=== PATIENT | male | born 1990 | race Caucasian/White ===

== ENCOUNTER → 2021-06-15 08:12 | Outpatient (BNVA) | payer OTHER, SELFPAY | PROVIDERS: Visit Provider Family Medicine | DX: Z20.822 Contact with and (suspected) exposure to COVID-19 (principal); J18.9 Pneumonia, unspecified organism; R63.4 Abnormal weight loss | CPT/HCPCS: 80053; 84439; 84443; 85025; 87635 ==

== ENCOUNTER → 2021-06-27 15:32 | Outpatient (BNVA) | payer SELFPAY | PROVIDERS: Visit Provider Nurse Practitioner Family | DX: R79.81 Abnormal blood-gas level (principal); R05.9 Cough, unspecified | CPT/HCPCS: 71046 ==

== ENCOUNTER 2021-06-27 18:58 | Emergency (ER) | payer SELFPAY ==
--- NOTE | 2021-06-27 19:21 | XRR_ITS ---
PROCEDURE INFORMATION: Exam: XR Chest Exam date and time: 06/27/2021 7:21 PM Age: 30 years old Clinical indication: Shortness of breath; Patient HX: Low o2; Additional info: Covid TECHNIQUE: Imaging protocol: XR of the chest. Views: 1 view. COMPARISON: CR XR chest 2V* [id number] 06/27/2021 3:41 PM FINDINGS: Lungs: Since earlier today the left lung is now clear. No consolidation. Pleural spaces: Unremarkable. No pleural effusion. No pneumothorax. Heart/Mediastinum: Unremarkable. No cardiomegaly. Bones/joints: Unremarkable. XR/XR chest 1V portable [id number] IMPRESSION: The lungs are clear
[2021-06-27 20:22] VITALS: BP 132/79; PULSE 98; RESP 26; O2SAT 88; BMI 17.6
[2021-06-27 22:44] VITALS: BP 108/79; PULSE 100; RESP 18; O2SAT 95
[2021-06-27 23:24] VITALS: BP 134/82; PULSE 110; RESP 20; O2SAT 92
--- NOTE | 2021-06-27 23:26 | PC.NURSE ---
received with c/o low SPO2 since 06/10/2021, states seen by MD and has completed antibiotics and steroids with out relief. oxygen noted to drop to 88% when walking while on oxygen. when at rest O2 increases reports green sputum wtih coughing but states it is normal. states cough is not any worse than usual. speech clear, sentences complete.
--- NOTE | 2021-06-27 23:27 | ECG_ITS ---
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 Measurements Intervals Burns Rate: 79 P: 84 LA: 134 QRS: 92 QRSD: 86 T: 75 QT: 345 QTc: 397 Interpretive Statements SINUS RHYTHM BORDERLINE RIGHT AXIS DEVIATION [QRS AXIS > 90] POSSIBLE RIGHT VENTRICULAR CONDUCTION DELAY [RSR (QR) IN V1/V2] ST ELEVATION, PROBABLY EARLY REPOLARIZATION [ST ELEVATION WITH NORMALLY INFLECTED T-WAVE] TALL T-WAVES, SUGGESTS HYPERKALEMIA No previous ECG available for comparison Electronically Signed On 06-28-2021 17:09:47 APPLICATION ASSISTANT by Machelle Huang M.D. [id number]
[2021-06-27 23:29] LABS: SARS Covid-2 Antigen Negative (Negative)
--- NOTE | 2021-06-27 23:31 | W.ED.SOB ---
HPI - SOB/Dyspnea General: Chief Complaint: Shortness of Breath/Dyspnea Stated Complaint: Oxygen Level Low\Having problems breathing Time Seen by Provider: 06/27/21 23:23 Source: patient Mode of arrival: ambulatory Limitations: no limitations History of Present Illness: HPI Narrative: 30-year-old male states over the last month he has been having increasing shortness of breath. He states he has been having a cough and congestion and he states that over the last 3 to 4 days he has had increasing dyspnea he is having hypoxic here his pulse ox is 87% on room air. He states that it is much worse with exertion denies any chest pain denies any history of smoking or previous respiratory issues that he knows of. Associated symptoms: Deny abdominal pain, chest pain, fever(s), nausea or vomiting Review of Systems Const: Denies: fever(s), chills, body aches or change in appetite Eyes: Denies: blurry vision or eye discomfort ENMT: Denies: throat pain or dental pain Card: Denies: chest pain Resp: Reports: dyspnea, non-productive cough and wheezing GI: Denies: abdominal pain, nausea, vomiting or diarrhea : Denies: dysuria Musc: Denies: neck pain or back pain Skin/Breast: Denies: rash Neuro: Denies: headache(s) Psych: Denies: depression Anatoly/Lymph: Denies: easy bruising All/Imm: Denies: urticaria PFSH ED PFSH: Family History (Updated 06/28/21 @ 03:12 by Isidoro Yoder MD) Denies family history of CAD (coronary artery disease) Social History Smoking and tobacco status: never smoked Alcohol intake: never Physical Exam Const: COMMON NORMALS: no acute distress, patient oriented x3 and healthy appearing HENMT: COMMON NORMALS: normocephalic and atraumatic HEAD & SCALP: normocephalic and atraumatic Eye: COMMON NORMALS: Equal, round and reactive pupils present and EOMs intact bilaterally PUPIL: Yes Equal, round and reactive pupils present Neck/C-Spine: COMMON NORMALS: full ROM and supple Chest: COMMONS NORMALS: normal inspection of the chest and normal palpation of entire chest wall Resp: COMMON NORMALS: normal respiratory effort, No retractions, No use of accessory muscles and clear to auscultation bilaterally AUSCULTATION: clear to auscultation bilaterally and wheezes Cardio: COMMON NORMALS: regular rate, regular rhythm and No murmurs present (Cardio) RATE: regular rate RHYTHM: regular rhythm GI: COMMON NORMALS: Normal to inspection, nondistended, normoactive bowel sounds present, Soft to palpation, non-tender and no masses PALPATION: Yes Soft to palpation Extremity: COMMON NORMALS: normal to inspection and full ROM Neuro: COMMON NORMALS: patient oriented x3, moves all extremities and no focal motor deficits Psych: COMMON NORMALS: mental status grossly normal, Normal thought process present and cooperative THOUGHT PROCESS: Normal thought process present Skin: COMMON NORMALS: no rashes or lesions noted and no wounds GENERAL SKIN EXAM: no rashes or lesions noted Course Vital Signs: Vital signs: Vital Signs Pulse Rate 101 H 06/28/21 00:12 Respiratory Rate 16 06/28/21 00:09 Blood Pressure 134/82 06/27/21 23:24 Pulse Oximetry 91 06/28/21 00:16 MDM - SOB/Dyspnea Medical Decision Making Patient presents here with shortness of breath likely bronchitis will have a send out COVID test patient requiring 2 L of oxygen here and qualified for home oxygen will start him on steroids antibiotics and send him home with home oxygen x-ray shows no pneumonia blood work is all normal D-dimer is negative we will get him follow-up with pulmonology he understands agrees to plan. Lab Data : 06/28/21 00:45 06/28/21 01:21 Labs/Radiology: Radiology Impressions Chest X-Ray 06/27/21 19:21 IMPRESSION: The lungs are clear Laboratory Results WBC 11.8 10^3/uL (4.0-10.0) H 06/28/21 00:45 RBC 5.26 10^6/uL (4.1-5.3) 06/28/21 00:45 Hgb 16.0 g/dL (11.7-16.6) 06/28/21 00:45 Hct 47.5 % (42.0-52.0) 06/28/21 00:45 MCV 90.3 fl (80-94) 06/28/21 00:45 MCH 30.4 pg (28.0-34.0) 06/28/21 00:45 MCHC 33.7 g/dL (30.0-36.0) 06/28/21 00:45 RDW 12.0 % (12.1-15.1) L 06/28/21 00:45 Plt Count 396 10^3/cmm (130-400) 06/28/21 00:45 MPV 8.9 fL (7.4-10.4) 06/28/21 00:45 Neut % (Auto) 70.1 % 06/28/21 00:45 Lymph % (Auto) 19.9 % 06/28/21 00:45 [place] % (Auto) 5.4 % 06/28/21 00:45 Eos % (Auto) 3.1 % 06/28/21 00:45 Baso % (Auto) 1.0 % 06/28/21 00:45 Neut # (Auto) 8.27 10^3/uL (1.8-7.7) H 06/28/21 00:45 Lymph # (Auto) 2.4 10^3/uL (0.8-4.8) 06/28/21 00:45 Charlotte # (Auto) 0.6 10^3/uL (0.2-0.9) 06/28/21 00:45 Eos # (Auto) 0.4 10^3/uL (0.0-0.8) 06/28/21 00:45 Baso # (Auto) 0.1 10^3/uL (0.0-0.1) 06/28/21 00:45 Nucleated RBC % (auto) 0 % 06/28/21 00:45 Nucleated RBCs # 0.0 /100WBC 06/28/21 00:45 D-Dimer <= 0.27 ug/mIFEU (0-0.59) 06/28/21 00:45 Specimen Type Arterial 06/27/21 23:50 Sample Site Radial, left 06/27/21 23:50 ABG pH 7.46 (7.35-7.45) H 06/27/21 23:50 ABG pCO2 36.6 mmHg (35-45) 06/27/21 23:50 ABG pO2 57.0 mmHg (80.0-100.0) L 06/27/21 23:50 ABG HCO3 26.3 mmol/L (22-26) H 06/27/21 23:50 ABG Base Excess 2.7 mmol/L (-2.0-2.0) H 06/27/21 23:50 Pradip Test Pos 06/27/21 23:50 Hematocrit 50.8 % (42-52) 06/27/21 23:50 Hgb O2 Saturation 89.1 % (95-100) L 06/27/21 23:50 Carboxyhemoglobin 1.4 %THgb (0.4-20.1) 06/27/21 23:50 Methemoglobin 0.6 % (0.4-1.5) 06/27/21 23:50 Total Hemoglobin 16.6 g/dL (14-18) 06/27/21 23:50 O2 Delivery Device Nc 06/27/21 23:50 O2 Liters/Min 3.0 % 06/27/21 23:50 Eyeglass Inspector ID Buttr 06/27/21 23:50 Sodium 133 mmol/L (136-145) L 06/28/21 01:21 Potassium 4.3 mmol/L (3.5-5.1) 06/28/21 01:21 Chloride 100 mmol/L (98-107) 06/28/21 01:21 Carbon Dioxide 23 mmol/L (22-29) 06/28/21 01:21 Anion Gap 14.3 (5-19) 06/28/21 01:21 BUN 14 mg/dL (6-20) 06/28/21 01:21 Creatinine 0.5 mg/dL (0.7-1.2) L 06/28/21 01:21 GFR Calculation 193.9 mL/min (90-130) H 06/28/21 01:21 Glucose 116 mg/dL (65-115) H 06/28/21 01:21 Calculated Osmolality 277 mOsm/kg (285-295) L 06/28/21 01:21 Calcium 8.4 mg/dL (8.5-10.5) L 06/28/21 01:21 Total Bilirubin 0.6 mg/dL (0.15-1.2) 06/28/21 01:21 AST 20 U/L (0-40) 06/28/21 01:21 ALT 21 U/L (0-41) 06/28/21 01:21 Alkaline Phosphatase 90 IU/L (40-130) 06/28/21 01:21 NT-Pro-B Natriuret Pep 24 pg/mL (0-125) 06/28/21 01:21 Total Protein 7.3 g/dL (6.6-8.7) 06/28/21 01:21 Albumin 3.8 g/dL (3.5-5.2) 06/28/21 01:21 Globulin 3.5 g/dL (1.3-4.6) 06/28/21 01:21 Coronavirus 229E (PCR) Not detected (NOT DETECT) 06/27/21 22:45 SARS-CoV-2 (PCR) Not detected (NOT DETECT) 06/27/21 22:45 SARS-CoV-2 Ag (Rapid) Negative (Negative) 06/27/21 22:45 Imaging Data CXR: I personally reviewed and interpreted this imaging study as follows: My impression: no acute abnormality EKG Data EKG 1: I personally reviewed and interpreted this EKG as follows: EKG Interpretation Date: 06/27/21 EKG interpretation time: 23:49 Interpretation: nsr hr [address] or t wave abnormalities some eary repol qrs 86 qtc 380 Discharge Plan Discharge Patient Disposition: Home Clinical Impression: Bronchitis Condition: Stable Prescriptions: New prednisone 50 mg tablet 50 mg PO DAILY Qty: 5 0RF doxycycline hyclate 100 mg tablet 100 mg PO BID 7 Days Qty: 14 0RF No Action albuterol sulfate 90 mcg/actuation HFA aerosol inhaler 2 inh inhalation Q6H PRN0RF azithromycin 250 mg tablet See Rx Instructions PO .COMPLEX 0RF Rx Instructions: take 500 mg today (day 1), then 250 mg for 4 days (days 2-5) PO Discharge Orders: Discharge ED (Routine); Ordered 06/28/21 Ordered By: Isidoro Yoder Other Ambulatory Orders: DME: Oxygen (Order) Location: None Selected Ordered By: Isidoro Yoder Referrals: KrzysztofrJb MD [Physician] - 1-3 days Discharge Diet: Advance as tolerated Discharge Activity: Resume usual activity Patient Instructions: Acute Bronchitis (ED) Coding Level of Care Code ED Armored Machine Operator for Chg Fwd Exam Comprehensive
[2021-06-28 00:02] LABS: ABG PCO2 36.6 mmHg (35-45); ABG PH Result 7.46 (7.35-7.45); Arterial Blood Gas Hematocrit 50.8 % (42-52); Base Excess ABG 2.7 mmol/L (-2.0-2.0); Blood Gas Allen Test Pos; Blood Gas Sample Site Radial, left; Blood Gas Sample Type Arterial; Carboxyhemoglobin 1.4 %THgb (0.4-20.1); HCO3 ABG 26.3 mmol/L (22-26); HGB O2 Sat 89.1 % (95-100); Methemoglobin 0.6 % (0.4-1.5); Oxygen Device NC; Total Hemoglobin 16.6 g/dL (14-18)
[2021-06-28 00:09] VITALS: PULSE 96; RESP 16; O2SAT 92
[2021-06-28] MEDS: ipratropium-albuterol 3 mL Neb INHALATION (00:09)
[2021-06-28 00:11] VITALS: O2SAT 85; O2SAT 90; O2SAT 91
[2021-06-28 00:12] VITALS: PULSE 101; O2SAT 91
[2021-06-28 00:16] VITALS: O2SAT 91
[2021-06-28 00:46] LABS: Adenovirus Not Detected (NOT DETECT); Chlamydia Pneumoniae Not Detected (NOT DETECT); Coronavirus 229E,HKU1,NL63,OC4 Not Detected (NOT DETECT); Human Metapneumovirus Not Detected (NOT DETECT); Human Rhinovirus/Enterovirus Not Detected (NOT DETECT); Influenza A Not Detected (NOT DETECT); Influenza A H1 Not Detected (NOT DETECT); Influenza A H1-2009 Not Detected (NOT DETECT); Influenza A H3 Not Detected (NOT DETECT); Influenza B Not Detected (NOT DETECT); Mycoplasma Pneumoniae Not Detected (NOT DETECT); Parainfluenza Virus Type 1 Not Detected (NOT DETECT); Parainfluenza Virus Type 2 Not Detected (NOT DETECT); Parainfluenza Virus Type 3 Not Detected (NOT DETECT); Parainfluenza Virus Type 4 Not Detected (NOT DETECT); Respiratory Syncytial Virus A Not Detected (NOT DETECT); Respiratory Syncytial Virus B Not Detected (NOT DETECT); SARS-COV-2 Not Detected (NOT DETECT)
[2021-06-28 00:56] LABS: Basophils # 0.1 10^3/uL (0.0-0.1); Eosinophils # 0.4 10^3/uL (0.0-0.8); Eosinophils % 3.1 %; Hematocrit 47.5 % (42.0-52.0); Lymphocytes # 2.4 10^3/uL (0.8-4.8); Lymphocytes % 19.9 %; Mean Corpuscular HGB Conc 33.7 g/dL (30.0-36.0); Mean Corpuscular Hemoglobin 30.4 pg (28.0-34.0); Mean Corpuscular Volume 90.3 fl (80-94); Mean Platelet Volume 8.9 fL (7.4-10.4); Monocytes # 0.6 10^3/uL (0.2-0.9); Monocytes % 5.4 %; Neutrophils # 8.27 10^3/uL (1.8-7.7); Neutrophils % 70.1 %; Nucleated Red Blood Cells % 0 %; Platelet Count 396 10^3/cmm (130-400); Red Blood Count 5.26 10^6/uL (4.1-5.3); White Blood Count 11.8 10^3/uL (4.0-10.0)
[2021-06-28 01:10] LABS: D Dimer <= 0.27 ug/mIFEU (0-0.59)
[2021-06-28 02:06] LABS: Alanine Aminotransferase 21 U/L (0-41); Albumin Level 3.8 g/dL (3.5-5.2); Alkaline Phosphatase 90 IU/L (40-130); Anion Gap 14.3 (5-19); Aspartate Amino Transferase 20 U/L (0-40); Blood Urea Nitrogen 14 mg/dL (6-20); Calcium 8.4 mg/dL (8.5-10.5); Carbon Dioxide 23 mmol/L (22-29); Chloride 100 mmol/L (98-107); Globulin 3.5 g/dL (1.3-4.6); Glomerular Filtration Rate 193.9 mL/min (90-130); Glucose 116 mg/dL (65-115); NT Pro B Type Natriuretic Pept 24 pg/mL (0-125); Osmolality Calculated 277 mOsm/kg (285-295); Potassium 4.3 mmol/L (3.5-5.1); Sodium 133 mmol/L (136-145); Total Bilirubin 0.6 mg/dL (0.15-1.2); Total Protein 7.3 g/dL (6.6-8.7)
[2021-06-28 03:15] VITALS: BP 134/82; PULSE 89; RESP 21; TEMP 36.7; O2SAT 90
--- NOTE | 2021-06-28 15:00 | DCPLANNER ---
[facility] had message to schedule a follow up appointment for patient with pulmonlogy. [facility], spoke with [place], gave clinic patients information. A follow up appointment was scheduled for 07.11.[address] Ceballos. [facility] called patient to give patient the appointment information. Patient stated that he was feeling better, and that he did not feel like he needed the appointment, he wanted block and case maker to cancel appointment. [facility] called [facility] back, and cancelled the appointment.
[2021-06-29 18:32] LABS: Quest SARS-CoV-2 RNA NOT DETECTED (NOT DETECTED)
== END 2021-06-28 03:17 | disposition home or self-care (01) ==
PROVIDERS: Emergency Medicine; Emergency Provider Emergency Medicine
DX: J40 Bronchitis, not specified as acute or chronic (principal); Z20.822 Contact with and (suspected) exposure to COVID-19
CPT/HCPCS: 36600; 71045; 80053; 82805; 83880; 85025; 85378; 87426; 87635; 93005; 94640; 96374; 99284; J2930; J7611

== ENCOUNTER → 2021-09-28 16:26 | Outpatient (BNVA) | payer SELFPAY | PROVIDERS: Visit Provider Internal Medicine Critical Care Medicine | DX: R06.02 Shortness of breath (principal); J45.909 Unspecified asthma, uncomplicated; Z68.1 Body mass index [BMI] 19.9 or less, adult; R79.81 Abnormal blood-gas level | CPT/HCPCS: 36415; 82785; 84443; 86003 ==

== ENCOUNTER 2021-11-09 12:05 | Outpatient (CLI) | payer SELFPAY ==
--- NOTE | 2021-11-09 12:19 | USCV_ITS ---
Ilia Lagunas Age: 31 Gender: M : 1990 Exam Date: 11/09/2021 12:37 Ordering Phys: Titus Cuellar MD Technologist: Exam Location: [facility] [place] Indication: dyspenea BP: 120 / 70 HR: 74 Rhythm: Sinus Technical Quality: Adequate MEASUREMENTS (Male / Female) Normal Values 2D ECHO LV Diastolic Diameter PLAX 4.0 cm 4.2 - 5.9 / 3.9 - 5.3 cm LV Systolic Diameter PLAX 2.6 cm IVS Diastolic Thickness 0.7 cm 0.6 - 1.0 / 0.6 - 0.9 cm IVS Systolic Thickness 1.0 cm LVPW Diastolic Thickness 0.8 cm 0.6 - 1.0 / 0.6 - 0.9 cm LVPW Systolic Thickness 1.1 cm LVOT Diameter 2.0 cm LV Ejection Fraction 2D Teich 66.6 % LV Ejection Fraction MOD 2C 72.3 % LV Ejection Fraction 2C AL 71.0 % LA Diameter 2.8 cm IVC Diameter 1.6 cm M-MODE Aortic Annulus Diameter 3.8 cm LA Ao Ratio MM 0.9 MV E Point Septal Separation 1.8 cm DOPPLER AV Peak Velocity 116.0 cm/s LVOT Peak Velocity 98.0 cm/s AV Area Cont Eq vti 2.0 cm squared AV Area Cont Eq pk 2.7 cm squared MV Area PHT 5.0 cm squared Mitral E to A Ratio 1.8 MV E' Velocity 64.0 cm/s Mitral E to MV E' Ratio 5.9 Mitral E to LV E' Lateral Ratio 5.3 Mitral E to LV E' Septal Ratio 6.6 TR Peak Velocity 231.7 cm/s TR Peak Gradient 21.5 mmHg TV Peak E Velocity 87.0 cm/s Right Atrial Pressure 3.0 mmHg Pulmonary Artery Systolic Pressu 24.5 mmHg PV Peak Velocity 106.0 cm/s FINDINGS Left Ventricle Normal LV size with normal ejection fraction of 55%. No gross wall motion normalities. Right Ventricle The right ventricle is normal in size and function. Right Atrium The right atrium is normal in size. Left Atrium The left atrium is normal in size. Mitral Valve No gross abnormalities noted Aortic Valve No gross abnormalities noted Tricuspid Valve No gross abnormalities noted Pulmonic Valve No gross abnormalities noted Pericardium Normal pericardium without effusion. Aorta Normal ascending aorta dimension. IVC The inferior vena cava pulmonary and hepatic veins appear normal. CONCLUSIONS Normal LV size with normal ejection fraction of 55%. No gross wall motion normalities. Normal cardiac chamber sizes. No significant valvular lesions. No intracardiac masses. Technically somewhat difficult study because the prone apical window Dr Semaj Castañeda MD FAC (Electronically Signed) Final Date: 10 November 2021 00:41 S
--- NOTE | 2021-11-09 14:05 | PFTS_ITS ---
Date of Study:11/09/21 Date of Dictation: 11/10/2021 MECHANICS: Postbronchodilator forced vital capacity (FVC) is reduced Postbronchodilator forced expiratory volume in one second (FEV1) is severely reduced 31% FEV1/FVC is reduced. There is significant response to bronchodilators. FLOW VOLUME LOOP: Severe sloping of expiratory limb suggestive of severe airflow obstruction. LUNG VOLUMES: Total lung capacity (TLC) is normal. Residual volume ( RV) is increased suggestive of severe air trapping DIFFUSING CAPACITY FOR CARBON MONOXIDE: Moderately reduced 55% . INTERPRETATION: The spirometry is suggestive of severe airflow obstruction. There is. Significant response to bronchodilators. Lung volumes are increased suggestive of severe air trapping. DLCO is moderately reduced. Constellation of findings consistent with severe emphysema. Correlate clinically. MTDD
== END 2021-11-09 12:06 | disposition home or self-care (01) ==
LOC: RAD 12:07
PROVIDERS: Visit Provider Internal Medicine Critical Care Medicine
DX: R06.02 Shortness of breath (principal)
CPT/HCPCS: 93306; 94060; 94726; 94729; J7611